=== PATIENT | female | born 1950 | race Caucasian/White ===

== ENCOUNTER 2023-10-03 08:27 | Inpatient (IN) | payer OTHER, SELFPAY ==
[2023-09-28 09:40] VITALS: BMI 22.5
[2023-09-28 10:21] LABS: % Basophils 1.2 % (0-2); % Immature Granulocytes 0.1 % (0-0.5); % Lymphocytes 31.4 % (20.5-51.1); % Monocytes 10.8 % (1.7-9.3); % Neutrophils 51.5 % (42.2-75.2); Absolute Basophils 0.1 10^3/uL (0-0.2); Absolute Eosinophils 0.3 10^3/uL (0-0.7); Absolute Lymphocytes 2.1 10^3/uL (1.2-3.4); Absolute Monocytes 0.7 10^3/uL (0.1-0.6); Absolute Neutrophils 3.5 10^3/uL (1.4-6.5); Hematocrit 37.3 % (37.0-47.0); Mean Corp Hgb Conc. 32.2 g/dL (33.0-37.0); Mean Corpuscular Hgb 30.8 pg (27.0-31.0); Mean Corpuscular Volume 95.9 fL (81.0-99.0); Mean Platelet Volume 11.1 fL (7.4-10.4); Nucleated Red Blood Cells % 0 %; Platelet Count 177 10^3/uL (130-400); Red Blood Cell Count 3.89 10^6/uL (4.20-5.40); Red Cell Dist. Width 12.6 % (11.5-14.5); White Blood Cell Count 6.8 10^3/uL (4.8-10.8)
[2023-09-28 10:32] LABS: APTT 30.2 Sec (23.4-35.0); INR 1.07; PT 13.9 Sec (11.4-14.6)
[2023-09-28 10:54] LABS: Blood Urea Nitrogen 12 mg/dl (7-17); Calcium 9.4 mg/dl (8.4-10.2); Carbon Dioxide 31 mmol/L (22-30); Chloride 103 mmol/L (98-107); Estimated Creatinine Clearance 45 ml/min; Glucose 83 mg/dl (70-99); Potassium 4.4 mmol/L (3.5-5.1); Sodium 143 mmol/L (135-145); eGFR > 60.00
[2023-10-03] VITALS (12 sets, daily range): BP systolic 90–169; BP diastolic 29–68; BMI 22.3
[2023-10-03] MEDS: NSS 500 IV (09:04)
[2023-10-03] MEDS: BACTROBAN NASAL 1 GRAM NASAL (09:04)
[2023-10-03] MEDS: PERIDEX 0.12% ORAL RINSE 15 ML PO (09:04)
--- NOTE | 2023-10-03 09:48 | HP.FOC2 ---
Focused History & Physical
Chief Complaint
HPI:
Chief Complaint: Left carotid stenosis
HPI / Indication for Planned Procedure: This is a 73-year-old female with history of left carotid stenosis, presenting for left carotid endarterectomy. Denies recent trauma, illness, hospitalization, and reports she is at baseline health.
Relevant Past Medical History: Other (A-fib, COPD, alcohol dependence, nicotine abuse, reflux, iron deficiency, hypovolemia, hypertension)
Relevant Social History: ETOH and Tobacco Use (Former)
Relevant Family History: Positive for (Cancer)
Relevant Past Surgical History: Positive for (Teeth extraction and hip surgery x 2)
Review of Systems
Review of Pertinent Systems: All Systems Negative
Medication
See Medication form for detailed medications: Yes
Medication List (including Herbals & OTC):
aspirin 81 mg tablet,delayed release 81 mg PO DAILY 09/26/23
atorvastatin 40 mg tablet 40 mg PO DAILY 09/26/23
ezetimibe 10 mg tablet 10 mg PO DAILY 09/26/23
famotidine 40 mg tablet 40 mg PO HS 09/26/23
magnesium 200 mg tablet 200 mg PO HS 09/26/23
metoprolol succinate 25 mg tablet,extended release 24 hr 37.5 mg PO DAILY 09/26/23
mirtazapine 15 mg tablet 15 mg PO HS 09/26/23
multivitamin 1 tab PO DAILY 09/26/23
pantoprazole 40 mg tablet,delayed release 40 mg PO DAILY 09/26/23
Medications Reviewed: Yes
Allergies and Reactions
Patient has Allergies: No
Noted Allergies and Reactions:
Allergy/AdvReac Type Severity Reaction Status Date / Time
No Known Allergies Allergy Verified 10/03/23 08:53
Pertinent Physical Exam
All Other Systems: Negative
Head/Neck: Normal
Lungs: Normal (Bilateral lungs CTA)
Heart: Other (RRR, positive for murmur)
Abdomen: Normal (Nontender nondistended)
Extremities: Normal
Neurological: Normal
Diagnosis / Assessment
Assessment: 73-year-old female with left carotid stenosis
Plan / Procedure
Plan: We will proceed with left carotid endarterectomy as scheduled
Anesthesia/Sedation to be done by Anesthesia Provider: Yes
--- NOTE | 2023-10-03 10:13 | W.SUR.PREOP ---
Pre-Operative Surgical Note
-
I have examined this patient prior to the performance of the scheduled procedure.
The patient's condition is unchanged from the time of the current History and
Physical and the patient is able to undergo the scheduled procedure.
[2023-10-03 12:16] LABS: ACT-LR - POC 316 Seconds (116-155)
[2023-10-03 13:01] LABS: ACT-LR - POC 277 Seconds (116-155)
--- NOTE | 2023-10-03 13:38 | OR.RPT ---
Operative Report
Operative Report
Date of Operation: 10/03/2023
Pre Op Diagnosis: High-grade asymptomatic left internal carotid artery stenosis
Post Op Diagnosis: High-grade asymptomatic left internal carotid artery stenosis
Procedure: LEFT carotid endarterectomy with patch angioplasty using bovine pericardium
Surgeon: Chad Mills III, MD
Hvac Maintenance Technician: Óscar Casanova MD PhD PGY-6
Anesthesia: General
Complications: None
History and Indications for Procedure: 73-year-old female with asymptomatic high-grade left internal carotid artery stenosis
Procedure in Detail: Bethanie Ewing was correctly identified and placed supine on the operating table. After adequate induction of anesthesia the left neck was positioned, prepped and draped in the usual sterile fashion. Preoperative antibiotics were
administered. A timeout procedure was performed with the nursing and anesthesia staff confirming the patients identity as well as the nature and laterality of the procedure.
The carotid bifurcation was marked with ultrasound at the beginning of the case. The incision was planned accordingly. An incision was made along the anterior border of the left sternocleidomastoid muscle. Electrocautery was used to divide the
subcutaneous tissue and platysma. The carotid sheath was entered with sharp dissection. The internal jugular vein was retracted laterally. The vagus nerve was identified and protected throughout the case. The common carotid artery was identified at
the base of this incision and carefully encircled with a vessel loop. The patient was systemically heparinized. The dissection was continued distally towards the carotid bifurcation. The facial vein was skeletonized, ligated and divided between ties
and clips. The proximal external carotid artery was encircled with a vessel loop. The distal internal carotid artery was encircled with a vessel loop at a soft spot on the artery beyond the plaque. The hypoglossal nerve was identified and protected.
The EEG monitoring demonstrated that the patient was in burst suppression at the beginning of the case. This did not improve by the time we were ready to clamp and therefore I felt EEG would be unreliable. I elected to proceed with shunting of the
internal carotid artery. The internal vessel loop was secured followed by the common and external. An arteriotomy was made on the distal common carotid artery with an 11-blade. This was extended proximally and distally with Saenz scissors. The
arteriotomy was extended distally through the plaque to an area of normal appearing internal carotid artery. An 8 [place] shunt was flushed with heparinized saline on the back table and carefully inserted into the distal internal carotid artery.
Pulsatile backbleeding was identified from the proximal end of the shunt. I then carefully inserted the proximal end of the shunt through the common carotid artery. The proximal and distal vessel loops were replaced with the appropriate sized
shunt clamps. An endarterectomy was then performed with a Cassandra elevator in the standard fashion. The proximal extent of the plaque was transected with scissors. The distal end of the plaque in the internal carotid artery feathered very nicely with
no distal intimal flap identified. The plaque extending into the external carotid artery was everted. Once the plaque was fully removed the endarterectomy plane was irrigated with heparinized saline and any loose fronds of tissue were removed. A
pre-cut piece of bovine pericardium was sewn in place using a running 6-0 Prolene suture. Prior to the completion of the patch the common carotid was allowed to forward bleed and the external was allowed to back bleed. The shunt was removed. The
shunt clamps were removed and the vessel loops resecured. The area under the patch was irrigated with heparinized saline to remove any potential thrombus or debris. The anastomosis was completed.
The external vessel loop was released first, followed by the common and then the internal. There was an excellent pulse in the distal internal carotid artery. An excellent quality Doppler signal in the distal internal carotid artery was also
confirmed. The patch suture line was closely inspected for hemostasis and was achieved. Protamine was administered. Hemostasis was achieved in the wound bed. The wound was irrigated with saline solution.
The wound was then closed in layers. Sterile dressings were applied. The patient awoke from anesthesia with no immediate neuro deficits and was taken to the PACU in stable condition.
Attestation: I was present and responsible for the entire procedure
Signed:
Chad Mills III, MD
[facility] Vascular Surgery
[phone] (cell)
--- NOTE | 2023-10-03 14:07 | W.SUR.POST ---
Surgical Immediate Post Op
Note
Pre Op Diagnosis: LEFT Carotid Stenosis
Post Op Diagnosis: LEFT Carotid Stenosis
Procedure Performed: LEFT Carotid Endarterectomy
Primary Surgeon: Chad Mills MD
Secondary Surgeons: Óscar Casanova MD, PhD
Anesthesia: Per Anesthesia
Estimated Blood Loss: 50 cc
Fluids: Per Anesthesia
Drains/Shunts: Carotid shunt during endarterectomy
Specimens/Cultures: None
Doppler/Duplex/Angio (Y/N): None
Complications: None
Operative Findings: Uncomplicated left carotid endarterectomy with intra-op shunt
[2023-10-03 14:33] LABS: Hematocrit 30.2 % (37.0-47.0); Mean Corp Hgb Conc. 33.1 g/dL (33.0-37.0); Mean Corpuscular Hgb 30.6 pg (27.0-31.0); Mean Corpuscular Volume 92.4 fL (81.0-99.0); Mean Platelet Volume 11.3 fL (7.4-10.4); Platelet Count 149 10^3/uL (130-400); Red Blood Cell Count 3.27 10^6/uL (4.20-5.40); Red Cell Dist. Width 12.7 % (11.5-14.5); White Blood Cell Count 6.1 10^3/uL (4.8-10.8)
[2023-10-03] MEDS: NSS 1000 IV (14:40)
[2023-10-03 14:45] LABS: Blood Urea Nitrogen 9 mg/dl (7-17); Calcium 8.1 mg/dl (8.4-10.2); Carbon Dioxide 27 mmol/L (22-30); Chloride 105 mmol/L (98-107); Estimated Creatinine Clearance 58 ml/min; Glucose 157 mg/dl (70-99); Potassium 3.8 mmol/L (3.5-5.1); Sodium 140 mmol/L (135-145); eGFR > 60.00
--- NOTE | 2023-10-03 14:53 | CON.INTV ---
Consultation
Consultation Request
Date/Time Consultation Requested: 10/03/2023
Date/Time Consultation Performed: 10/03/2023
Requesting Provider: Dr. Mills
Performing Provider: Dr. Vitaliy Montalvo
Reason for Consultation: Postoperative care-left carotid stenosis
Medical History
-
History of Present Illness:
73-year-old woman with past medical history significant for hypercholesterolemia, bilateral carotid artery stenosis. Admitted electively to undergo left carotic revascularization. Underwent carotid endarterectomy on 10/03/2023 without complications.
In the critical care unit she is somnolent but arousable. Able to move 4 extremities.
Slightly hypertensive. Arterial line in place.
Denies any acute complaints.
Past Medical History
Past Medical History: Other (See assessment and plan section)
Social History
Tobacco: Former Smoker (Quit smoking in June 2021)
Alcohol: Former
Drug: None
Family History
Family History: Reviewed & Not Pertinent
Allergies / Home Medications
Allergies
Allergy/AdvReac Type Severity Reaction Status Date / Time
No Known Allergies Allergy Verified 10/03/23 08:53
Home Medications
�Medication �Instructions �Recorded �Confirmed �Last Taken �Type
aspirin 81 mg tablet,delayed 81 mg PO DAILY Blood Clot 09/26/23 10/03/23 10/03/23 08:00 History
release Prevention/Tx
atorvastatin 40 mg tablet 40 mg PO DAILY High Cholesterol 09/26/23 10/03/23 10/03/23 08:00 History
ezetimibe 10 mg tablet 10 mg PO DAILY High Cholesterol 09/26/23 10/03/23 10/03/23 08:00 History
famotidine 40 mg tablet 40 mg PO HS Gastrointestinal Issue 09/26/23 10/03/23 10/02/23 18:00 History
magnesium 200 mg tablet 200 mg PO HS Electrolyte Repletion 09/26/23 10/03/23 10/02/23 18:00 History
metoprolol succinate 25 mg 37.5 mg PO DAILY Heart 09/26/23 10/03/23 10/03/23 08:00 History
tablet,extended release 24 hr Disease/Condition
mirtazapine 15 mg tablet 15 mg PO HS Depression 09/26/23 10/03/23 10/02/23 18:00 History
multivitamin 1 tab PO DAILY Supplement 09/26/23 10/03/23 10/03/23 08:00 History
pantoprazole 40 mg tablet,delayed 40 mg PO DAILY 09/26/23 10/03/23 10/03/23 08:00 History
release
Review of Systems
-
History Source: Patient
All other systems: Negative unless noted
Vitals / Labs / Diagnostic Testing
Vital Signs
Temp Pulse Resp BP Pulse Ox
97.8 F 73 10 123/55 95
10/03/23 14:00 10/03/23 14:45 10/03/23 14:45 10/03/23 14:45 10/03/23 14:45
Lab Data
10/03/23 14:21
10/03/23 14:21
Diagnostic Testing:
Physical Exam
-
HEENT: Normocephalic and Other (Cervical incision intact. No stridor on exam)
Cardiovascular: S1/S2
Respiratory: Clear
GI: Soft and Non Distended
Neurology: Awake, AO x 3 and No Motor Deficits
Skin: Warm
General: Comfortable
Assessment
-
73-year-old woman with history of left carotid artery stenosis, was deemed candidate for revascularization. Underwent endarterectomy on 10/03/2023.
Status post left carotid endarterectomy
Conditions present prior admission:
Atrial fibrillation
? COPD - Not on inhalers. Does not follow with pulmonary
Prior alcohol abuse
Nicotine abuse quit in 2021
History of bilateral total knee arthroplasty
Osteoporosis
GERD
Iron deficient
Hyperlipidemia
Hypertension
Assessment and plan:
Postoperative surgical intensive care unit monitoring
Supplemental oxygen as needed
Incentive spirometry
Aspiration precautions
Somnolent but arousable postoperatively. No neurological deficit noted. Continue with frequent neurochecks.
Nebulizers if needed-currently not bronchospastic
-
Chest x-ray 09/28/2023: Chest x-ray report was abnormal upper lobe predominant abnormalities. No prior to compare.
May benefit from CT of the chest in the outpatient setting if not done in the past.
-
Neuro and vascular checks per protocol
Vascular surgery following-correspondence and operative notes reviewed
Monitor blood pressure
Allow for mild permissive hypertension
Cardene drip if needed
Follow hemoglobin
Follow blood sugars
Insulin supplementation as needed
DVT prophylaxis
Early nutrition
Early mobilization
--- NOTE | 2023-10-03 15:44 | PTCARENOTE ---
Received patient to room 3365. neurologically intact, still continues to be groggy. Patient is on 4L nasal cannula, clear auscultation throughout. She is sinus rhythm in 60s on monitor. no edema noted. Left neck incision approximated,
ecchymotic, ice pack applied. Patient does have diet ordered, obtained water for patient, was able to take a sip but does not want anything further at this time. Admission assessment completed. will review orders.
[2023-10-03] MEDS: CARDENE 200 IV (17:04)
[2023-10-03] MEDS: TYLENOL 650 MG PO (18:41)
[2023-10-03] MEDS: ROXICODONE 5 MG PO (18:42)
[2023-10-03] MEDS: HEPARIN 5000 UNITS SC (19:23)
--- NOTE | 2023-10-03 19:50 | PTCARENOTE ---
Received patient AAOx3, following commands, reporting pain improved to 3/10, tolerable pain level. Q1 neuro checks, see flowsheet. Patient reports tingling in fingers and toes 'for years, nothing new'. Normal sinus, 70s. Cardene gtt ongoing to
maintain SBP 100-165. On 1 liter nasal cannula, saturating 95%. Lung sounds clear throughout, diminished anteriorly. Abdomen soft, round, positive bowel sounds. Bed vines to void, no BM yet this shift. Left CEA surgical site approximated, dry and
intact. NSS gtt ongoing per order. Right radial tam zeroed, flushed, and leveled. PIVs patent, WNL. Call cardenas within reach, patient able to make needs known.
[2023-10-03] MEDS: MAGNESIUM OXIDE 250 MG PO (21:50)
[2023-10-03] MEDS: REMERON 15 MG PO (21:50)
[2023-10-03] MEDS: PEPCID 40 MG PO (21:50)
[2023-10-04] VITALS (8 sets, daily range): BP systolic 119–168; BP diastolic 40–120; BMI 22.9
--- NOTE | 2023-10-04 00:44 | PTCARENOTE ---
Cardene gtt off since 2014, otherwise patient unchanged from previous. Call cardenas within reach.
[2023-10-04] MEDS: NSS 1000 IV (03:13)
--- NOTE | 2023-10-04 03:34 | PTCARENOTE ---
Cardene restarted for systolics 190s-200s. 250 ml void yellow urine in bed vines. Bladder scanned post void for 357 ml. Labs sent, repositioned. Otherwise patient assessment unchanged from previous.
[2023-10-04 03:35] LABS: Hematocrit 31.6 % (37.0-47.0); Hemoglobin 10.8 g/dL (12.0-16.0); Mean Corp Hgb Conc. 34.2 g/dL (33.0-37.0); Mean Corpuscular Hgb 31.2 pg (27.0-31.0); Mean Corpuscular Volume 91.3 fL (81.0-99.0); Mean Platelet Volume 11.5 fL (7.4-10.4); Platelet Count 157 10^3/uL (130-400); Red Blood Cell Count 3.46 10^6/uL (4.20-5.40); Red Cell Dist. Width 12.6 % (11.5-14.5); White Blood Cell Count 8.7 10^3/uL (4.8-10.8)
[2023-10-04 03:46] LABS: INR 1.16; PT 14.6 Sec (11.4-14.6)
[2023-10-04 03:47] LABS: APTT 29.3 Sec (23.4-35.0)
[2023-10-04 03:57] LABS: Blood Urea Nitrogen 13 mg/dl (7-17); Calcium 8.3 mg/dl (8.4-10.2); Carbon Dioxide 23 mmol/L (22-30); Chloride 108 mmol/L (98-107); Estimated Creatinine Clearance 51 ml/min; Glucose 178 mg/dl (70-99); Potassium 4.2 mmol/L (3.5-5.1); Sodium 140 mmol/L (135-145); eGFR > 60.00
[2023-10-04] MEDS: HEPARIN 5000 UNITS SC (07:29)
[2023-10-04] MEDS: LIPITOR 40 MG PO (07:29)
[2023-10-04] MEDS: ASPIR LOW (ENTERIC COATED) 81 MG PO (07:29)
[2023-10-04] MEDS: TOPROL XL 37.5 MG PO (07:29)
[2023-10-04] MEDS: PROTONIX 40 MG PO (07:29)
[2023-10-04] MEDS: ZETIA 10 MG PO (07:30)
[2023-10-04] MEDS: THERAGRAN 1 TABLET PO (07:30)
--- NOTE | 2023-10-04 07:34 | PTCARENOTE ---
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 p atient is AAOx3 neurological checks remain WNL unchanged. Patient is on 2L nasal cannula, saturating 99%. Had periods of hypoxia overnight on room air. Patient is in a sinus rhythm. Cuff moved to right arm
only, [place] was correlating with cuff pressure. Cardene gtt weaned off. Patient has cholesterol lowering diet, ordered breakfast. Using bedpan to urinate, will ambulate this morning. heparin administered for DVT prophalaxis. Will review orders,
possible discharge this PM.
--- NOTE | 2023-10-04 08:32 | PTCARENOTE ---
Zeynep discontinued, IVF capped, patient OOB to chair.
--- NOTE | 2023-10-04 09:04 | W.PN.VS ---
Today's Communication / Plan
-
Seen and assessed with Dr Mills
Assessment/Plan
-
POD 1 LEFT carotid endarterectomy with patch angioplasty using bovine pericardium
Plan:
-DC tam
-DC IVF
-OOB/ambulate
-Diet
-Likely DC later today
Subjective Data
-
Date of Service: October 04, 2023
Pt seen at bedside this am with Dr Mills. Pt offers no complaints at this time. No events overnight. No drips
Objective Data
-
Vital Signs
Temp Pulse Resp BP Pulse Ox
97.7 F 83 19 168/64 99
10/04/23 07:41 10/04/23 08:30 10/04/23 08:30 10/04/23 08:04 10/04/23 08:04
Intake and Output
10/03/23 10/04/23 10/05/23
06:59 06:59 06:59
Intake Total 1695.0 / 1775.0 320 / 320
Output Total 1000 / 1000
Balance 695.0 / 775.0 320 / 320
Intake:
Oral fluids 240 / 240 240 / 240
IV fluids (Total) 1455.0 / 1535.0 80 / 80
Cardene 75.0 / 75.0 0 / 0
Nss 1,000 ml @ 80 mls/hr IV . 1280 / 1360 80 / 80
[id number] [facility] Rx#:[id number]
normosol 100 / 100
Output:
Urine, Voided 1000 / 1000
Lab Results
10/04/23 03:21
10/04/23 03:21
Calcium 8.3 mg/dl (8.4-10.2) L 10/04/23 03:21
Physical Exam
-
AAOX3
No tachypnea on RA
No tachycardia
Abd soft
Neck site c/d/i, soft, no drainage or hematoma
Moves all extremities equally
Tongue midline
--- NOTE | 2023-10-04 10:54 | W.DS.TRANS ---
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
-
Discharge Instructions:
Sleep Apnea Risk Low
Discharge Diagnosis/Procedures Left Carotid endarterectomy
Diet No restrictions
Activity No strenuous activity
Driving Restrictions Not until seen by your Dr
Bathing Restrictions OK to Shower
Instructions:
Stand-Alone Forms: DC Instr - Vascular OR
Changes to Home Medications: No
Discharge Medications:
DC Medications w/original date entered in [facility]
aspirin 81 mg tablet,delayed release 81 mg PO DAILY Blood Clot Prevention/Tx 09/26/23
atorvastatin 40 mg tablet 40 mg PO DAILY High Cholesterol 09/26/23
ezetimibe 10 mg tablet 10 mg PO DAILY High Cholesterol 09/26/23
famotidine 40 mg tablet 40 mg PO HS Gastrointestinal Issue 09/26/23
magnesium 200 mg tablet 200 mg PO HS Electrolyte Repletion 09/26/23
metoprolol succinate 25 mg tablet,extended release 24 hr 37.5 mg PO DAILY Heart Disease/Condition 09/26/23
mirtazapine 15 mg tablet 15 mg PO HS Depression 09/26/23
multivitamin 1 tab PO DAILY Supplement 09/26/23
pantoprazole 40 mg tablet,delayed release 40 mg PO DAILY 09/26/23
Home Medication Changes
Pending Results: No
--- NOTE | 2023-10-04 11:09 | CM ---
CM following re: discharge planning.
Discussed in Rounds, reviewed pt's chart, met with pt.
Pt is a 73 year old female, admitted with primary dx of POD#1 L CEA. Per Vascular Surgery, pt is medically stable and will be discharged home this afternoon. Pt is aware, expressed her agreement with discharge and she stated her son will transport
home. IMM reviewed, placed on chart, pt has a copy.
Pt reports she lives with son in a 2SH, 2steps to enter, has 2 supportive children. Pt reports she ambulates with a cane if needed. No VN or SNF history.
PCP: Minna Rowell
Pharmacy: [facility] [address]
D/C plan: home no needs. Son to transport.
--- NOTE | 2023-10-04 12:03 | PTCARENOTE ---
Patient is discharged, awaiting son
--- NOTE | 2023-10-04 12:11 | W.PN.INTV ---
Today's Communication / Plan
Recommendations
Discharge planning
Signed off
Assessment
-
73-year-old woman with history of left carotid artery stenosis, was deemed candidate for revascularization. Underwent endarterectomy on 10/03/2023.
Status post left carotid endarterectomy
Conditions present prior admission:
Atrial fibrillation
? COPD - Not on inhalers. Does not follow with pulmonary
Prior alcohol abuse
Nicotine abuse quit in 2021
History of bilateral total knee arthroplasty
Osteoporosis
GERD
Iron deficient
Hyperlipidemia
Hypertension
Assessment and plan:
Postoperative day 1
Hemodynamically stable
Neurologically intact
Incision without hematoma.
No stridor on exam
Tolerating diet
Ambulated to the restroom.
-
Chest x-ray 09/28/2023: Chest x-ray report was abnormal upper lobe predominant abnormalities. No prior to compare.
May benefit from CT of the chest in the outpatient setting if not done in the past. Can follow-up with primary care.
-
Neuro and vascular checks per protocol
Vascular surgery following-correspondence and operative notes reviewed
Discharge planning noted
-
No additional recommendation from the critical care perspective
Sign off
Subjective Dataa
Subjective Data
Date of Service:
Date of Service: October 04, 2023
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
Subjective:
Patient offers no complaints
Her voice is somewhat hoarse but improving
Pain is controlled
Denies weakness, headache or blurry vision.
Review of Systems
Cardiopulmonary: Dyspnea (n), Dyspnea on Exertion (n), Cough (n) and Sputum Production
Neuro: Headache (n) and Dizziness (n)
Objective Data
Data Reviewed
Vital Signs / I&O / Oxygen:
Vital Signs
Temp Pulse Resp BP Pulse Ox
98.1 F 76 14 142/120 99
10/04/23 12:03 10/04/23 11:00 10/04/23 11:00 10/04/23 11:00 10/04/23 08:04
Intake and Output
10/03/23 10/04/23 10/05/23
06:59 06:59 06:59
Intake Total 1695.0 / 1775.0 320 / 320
Output Total 1000 / 1000
Balance 695.0 / 775.0 320 / 320
SaO2 99
Nasal Cannula flow liters per 2
minute
Physical Exam
General: Comfortable
HEENT: Normocephalic
Cardiovascular: S1-S2 and Regular Rhythm
Respiratory: Clear and Non-Labored Respirations
GI: Soft and Non Distended
Neurology: Awake, AO x 3 and No Motor Deficits
Skin: Warm
Labs/Micro/Reports
Lab Data
10/04/23 03:21
10/04/23 03:21
Laboratory Results
10/04/23
03:21
PT 14.6
INR 1.16
APTT 29.3
[2023-10-05 18:46] LABS: Hepatitis C Antibody Negative (Negative)
== END 2023-10-04 12:36 | disposition home or self-care (01) | DRG 39 ==
LOC: ICU 08:27
PROVIDERS: Nurse Practitioner; ADMITTING PHYSICIAN Surgery Vascular Surgery; CONSULT PHYSICIAN Internal Medicine Critical Care Medicine; FAMILY PHYSICIAN Family Medicine
PROC: 03CN0ZZ Extirpation of Matter from Left External Carotid Artery, Open Approach (ICD-10-PCS; 2023-10-03)
PROC: 03CJ0ZZ Extirpation of Matter from Left Common Carotid Artery, Open Approach (ICD-10-PCS; 2023-10-03)
PROC: 03UL0KZ Supplement Left Internal Carotid Artery with Nonautologous Tissue Substitute, Open Approach (ICD-10-PCS; 2023-10-03)
PROC: 03CL0ZZ Extirpation of Matter from Left Internal Carotid Artery, Open Approach (ICD-10-PCS; 2023-10-03)
DX: I65.22 Occlusion and stenosis of left carotid artery (principal); Z87.891 Personal history of nicotine dependence; I48.91 Unspecified atrial fibrillation; M81.0 Age-related osteoporosis without current pathological fracture; K21.9 Gastro-esophageal reflux disease without esophagitis; E78.00 Pure hypercholesterolemia, unspecified; I10 Essential (primary) hypertension
CPT/HCPCS: 88304; 35301; 36415; 71046; 80048; 85025; 85027; 85610; 85730; 86803; 86850; 86900; 86901; 87070; 95938; 95941; 95955; 99406

== ENCOUNTER → 2023-11-10 11:37 | Outpatient (REF) | payer OTHER, SELFPAY | LOC: DHVS 11:37 | PROVIDERS: ATTENDING PHYSICIAN Physician Assistant; FAMILY PHYSICIAN Family Medicine | DX: I65.23 Occlusion and stenosis of bilateral carotid arteries (principal) | CPT/HCPCS: 93880 ==

== ENCOUNTER → 2024-05-29 13:19 | Outpatient (REF) | payer OTHER, SELFPAY | LOC: DHVS 13:19 | PROVIDERS: ATTENDING PHYSICIAN Surgery Vascular Surgery; FAMILY PHYSICIAN Family Medicine | DX: I65.23 Occlusion and stenosis of bilateral carotid arteries (principal) | CPT/HCPCS: 93880 ==

== ENCOUNTER → 2024-12-09 14:22 | Outpatient (REF) | payer OTHER, SELFPAY | LOC: RAD 14:22 | PROVIDERS: ATTENDING PHYSICIAN Physician Assistant; FAMILY PHYSICIAN Family Medicine; REFERRING PHYSICIAN Internal Medicine Cardiovascular Disease | DX: I65.23 Occlusion and stenosis of bilateral carotid arteries (principal) | CPT/HCPCS: 93880 ==